=== PATIENT | male | born 1970 | race Caucasian/White ===

== ENCOUNTER 2022-05-12 00:56 | Emergency (ER) | payer MEDICARE, SELFPAY ==
[2022-05-12 01:07] VITALS: BP 129/88; PULSE 83; RESP 18; TEMP 37; O2SAT 99; BMI 25.8
--- NOTE | 2022-05-12 02:07 | CRLHL7_ITS ---
For Patients: As a result of the Cures Act, medical imaging exams and procedure reports are released immediately into your electronic medical record. You may view this report before your referring provider. If you have questions, please contact your health care provider. INDICATION: Injury and pain. TECHNIQUE: Left wrist 3 views. COMPARISON: None. FINDINGS: No acute fractures or malalignment. Joint spaces are maintained. Soft tissues are unremarkable. IMPRESSION: No acute osseous abnormalities. Dictated by Eber Honeycutt MD @ 05/12/2022 2:41:46 AM (Electronically Signed)
[2022-05-12 02:44] VITALS: BP 129/88; PULSE 83; RESP 18; TEMP 37
[2022-05-12 02:45] VITALS: BP 118/78; PULSE 81; RESP 18; TEMP 36.7; O2SAT 99
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
== END 2022-05-12 02:47 | disposition home or self-care (01) ==
PROVIDERS: Emergency Provider Family Medicine; PCP Family Medicine
DX: S60.212A Contusion of left wrist, initial encounter (principal); W00.9XXA Unspecified fall due to ice and snow, initial encounter
CPT/HCPCS: 73110; 99283; 99284